=== PATIENT | male | born 1955 | race Caucasian/White ===

== ENCOUNTER 2019-12-07 13:58 | Emergency (ER) | payer OTHER, SELFPAY ==
[2019-12-07 14:08] VITALS: BP 141/92; PULSE 59; RESP 18; TEMP 36.7; O2SAT 98
--- NOTE | 2019-12-07 14:15 | DI.RAD_ITS ---
EXAM: XR SHOULDER RT COMPLETE 2+V INDICATION: fall onto R shoulder, r/o acute fracture. COMPARISON: No exams were available for comparison TECHNIQUE: 2D digital imaging was performed. FINDINGS: No fracture is identified. There is spurring from the glenoid. Glenohumeral joint space is well hugh ntained. The clavicle projects superior to the acromion which could represent a mild AC separation. This is of indeterminate age. An aortic valve prosthesis and sternal hardware is noted. IMPRESSION: Question of acromioclavicular separation. Degenerative changes. DATA REPOSITORY: RADIATION DOSE DELIVERED:
--- NOTE | 2019-12-07 14:29 | W.ED.GENAD ---
Discharge Plan Disposition Patient Disposition: HOME Condition: Stable Discharge Details Chief Complaint: Orthopedic Clinical Impression: AC separation Primary Care Provider: OUT OF AREA,PATIENT TRANS ED Provider: Priscilla Olson Home Meds and New Rx's Prescriptions: Continued latanoprost 0.005 % Drops 1 drp OPHTHALMIC (EYE) QPM RF: 0 atorvastatin 20 mg Tablet 20 mg PO DAILY RF: 0 metoprolol succinate 50 mg Tablet Extended Release 24 Hr 50 mg PO DAILY RF: 0 aspirin 81 mg Tablet,Chewable 81 mg PO DAILY RF: 0 timolol maleate 0.5 % Drops 1 drp OPHTHALMIC (EYE) DAILY RF: 0 cetirizine 10 mg Capsule 10 mg PO DAILY PRNRF: 0 Discharge Instructions Instructions: Acromioclavicular Separation (ED) Additional Instructions: Rest, ice, and elevate the affected area as much as possible. Alternate tylenol and motrin as needed and directed for pain. Take the Vicodin for pain not relieved with Tylenol or Motrin. Call your orthopedist today or Tuesday to schedule a follow-up appointment for reevaluation within the next 1 to 2 weeks. Return to any emergency department if you develop any worsening or new concerning symptoms. Discharge Data Discharge Date/Time-TO BE ENTERED AT DEPARTURE: 12/07/19 15:30 Discharge Physician: Priscilla Olson Medical Decision Making 64-year-old male presents with right shoulder pain after fall onto right shoulder while skiing. He was wearing a helmet and states he may have hit the right side of his head but denies any headache, LOC, vomiting, blurry vision or neck pain. He denies any other extremity injury, chest or abdominal injury, or back pain. Denies any damage to helmet. Patient appears to have inferior displacement of right shoulder compared to the left upper extremity. There is no tenting of skin noted or deformity consistent with dislocation. Neurovascular intact. No trauma or pain with range of motion in remainder of right upper extremity. Midline C-spine nontender. No focal deficits. Do not see an indication for CT head or cervical spine. Dose of ibuprofen given. Right shoulder x-ray noted AC separation but no bony injury. Patient placed in sling. He is visiting from [place] and was advised to follow-up within the next week. Tabs of Vicodin given to go. Advised to return with any concerns. Imaging Data Radiologic Study: Radiologist's impression: XR SHOULDER RT COMPLETE 2+V INDICATION: fall onto R shoulder, r/o acute fracture. COMPARISON: No exams were available for comparison TECHNIQUE: 2D digital imaging was performed. FINDINGS: No fracture is identified. There is spurring from the glenoid. Glenohumeral joint space is well maintained. The clavicle projects superior to the acromion which could represent a mild AC separation. This is of indeterminate age. An aortic valve prosthesis and sternal hardware is noted. IMPRESSION: Question of acromioclavicular separation. Degenerative changes. HPI General Mode of arrival: ambulatory. Date/Time Provider Initiated Documentation: 12/07/19 14:05. Limitations to Documentation: no limitations. Information obtained by: patient. History of Present Illness 64 year old M presents to the emergency department with the chief complaint of Right shoulder pain, and is localized to the right and upper extremity (Shoulder). Patient reports no radiation. Patient started experiencing this hour(s) (2) and it has been constant. Rest improves symptom(s), Movement worsens symptoms . Patient notes no other symptoms.. Patient did receive the following treatments prior to arrival, none Related Data Home Medications Medication Instructions Recorded Confirmed aspirin 81 mg PO DAILY 12/07/19 12/07/19 atorvastatin 20 mg PO DAILY 12/07/19 12/07/19 cetirizine 10 mg PO DAILY PRN 12/07/19 12/07/19 latanoprost 1 drp OPHTHALMIC (EYE) QPM 12/07/19 12/07/19 metoprolol succinate 50 mg PO DAILY 12/07/19 12/07/19 timolol maleate 1 drp OPHTHALMIC (EYE) DAILY 12/07/19 12/07/19 Allergies Allergy/AdvReac Type Severity Reaction Status Date / Time prochlorperazine Allergy Severe Anaphylaxsi Unverified 12/07/19 14:11 [From Compazine] s General Stated Complaint: Trauma CRYSTAL: 3 Review of Systems All systems reviewed & are unremarkable except as noted in HPI and below Constitutional Constitutional: Reports as per HPI, Denies chills and Denies fever(s) Eyes Eyes: Denies blurry vision ENT Ears, Nose, Mouth, and Throat: Denies dizziness, Denies sore throat and Denies throat swelling Cardiovascular Cardiovascular: Denies chest pain and Denies dyspnea Respiratory Respiratory: Denies cough and Denies dyspnea Gastrointestinal Gastrointestinal: Denies abdominal pain, Denies diarrhea and Denies vomiting Genitourinary Genitourinary: Denies hematuria and Denies dysuria Musculoskeletal Musculoskeletal: Denies back pain, Denies numbness and Reports other (Right shoulder pain) Integumentary/Breasts Skin/Breast: Denies lesions and Denies rash Neurologic Neurologic: Denies dizziness, Denies focal weakness and Denies numbness Allergic/Immunologic Allergic/Immunologic: Denies throat swelling FOR[facility] Medical History Bicuspid aortic valve (Acute) Glaucoma (Chronic) Surgical History H/O aortic valve replacement (Acute) Social History Smoking/Tobacco Use Status: Never Alcohol Intake: current Alcohol Intake frequency: holidays/special occasions only Drug use: Never Substance use type: does not use Do you feel safe at home: Yes Do you feel safe in your relationship?: Yes Exam Const General: cooperative, healthy appearing and no acute distress HENMT Head: normal to inspection Ears: hearing grossly normal bilaterally, external ears normal and TM's normal bilaterally General nose exam: external nose normal Face and sinus: normal facial exam Mouth: oral mucosae normal Eyes General: appearance normal, both eyes and all related structures Neck Neck: normal visual inspection Resp Effort & Inspection: normal respiratory effort and able to speak in complete sentences Cardio Rate: regular rate Back/Spine/Pelvis Cervical Spine: No cervical spinal tenderness Skin General skin exam: no rashes or lesions noted Neuro General: alert, awake, oriented x3 and gait normal Cranial Nerves: CN's II-XI intact bilaterally Motor: muscle tone normal throughout and strength 5/5 throughout Sensory Exam: no sensory deficits noted Extrem General: normal capillary refill Other: Tenderness to palpation right anterior and lateral shoulder. No obvious tenting of skin noted. No obvious deformity of right proximal arm and shoulder. Limited abduction and flexion at right shoulder due to pain. Right radial and ulnar pulses intact. Cap refill less than 2 seconds. No pain with range of motion or tenderness to palpation of right elbow, right wrist or right hand. No tenderness to palpation of right clavicle. Psych Appearance: grossly normal Affect: normal affect Course Vital Signs Vital signs: Vital Signs Temperature 98.1 F 12/07/19 14:08 Pulse 59 L 12/07/19 14:08 Respiratory Rate 18 12/07/19 14:08 Blood Pressure 141/92 H 12/07/19 14:08 Pulse Oximetry 98 12/07/19 14:08 Temperature 98.1 F 12/07/19 14:08 Temperature Source Temporal Artery Scan 12/07/19 14:08 Pulse 59 L 12/07/19 14:08 Respiratory Rate 18 12/07/19 14:08 Respiratory Effort Non-Labored 12/07/19 14:14 Blood Pressure 141/92 H 12/07/19 14:08 Blood Pressure Position Sitting 12/07/19 14:08 Pulse Oximetry 98 12/07/19 14:08 Oxygen Delivery Method Room Air 12/07/19 14:08 Oxygen Flow Rate 0 12/07/19 14:08 Pain Level 3 12/07/19 14:08
[2019-12-07] MEDS: Ibuprofen 600 MG TAB PO (14:47)
== END 2019-12-07 15:30 | disposition home or self-care (01) ==
PROVIDERS: Emergency Provider Physician Assistant
DX: S43.101A Unspecified dislocation of right acromioclavicular joint, initial encounter (principal); V00.321A Fall from snow-skis, initial encounter
CPT/HCPCS: 23540; 73030; L3650